=== PATIENT | female | born 1940 | race Caucasian/White ===

== ENCOUNTER → 2016-05-05 | Outpatient (CLI) | payer MEDICARE, OTHER | END | disposition home or self-care (01) | LOC: PCVCCLINIC 10:02 | PROVIDERS: ATTEND Internal Medicine Cardiovascular Disease | DX: E78.5 Hyperlipidemia, unspecified (principal); I10 Essential (primary) hypertension; I25.10 Atherosclerotic heart disease of native coronary artery without angina pectoris; R07.89 Other chest pain | CPT/HCPCS: 80061; 93005; G0463 ==

== ENCOUNTER → 2016-12-31 | Outpatient (CLI) | payer MEDICARE, OTHER ==
--- NOTE | 2016-12-31 11:20 | PCVCIMAG ---
APPROVED REPORT Exam: Stress Echocardiogram Indication: CAD s/p PCI RCA, HTN, HLP Patient Location: Echo lab Stress Nurse: Judi Fischer RN Status: routine Ht: 5 ft 8 in HR: 66 bpm BP: 114/78 mmHg Rhythm: NSR Procedure The patient underwent an Exercise Stress Test using the Reji Protocol. Blood pressure, heart rate, and EKG were monitored. An Echocardiogram was performed by orthotic finish grinding technician in four stages in quad fashion. At peak stress, four selected images were obtained and placed side by side with resting images for comparison. Stress Test Details Stress Test: Exercise stress testing was performed using a modified Reji protocol. HR Resting HR: 66 bpmMax Heart Rate (APMHR): 145 bpm Max HR Achieved: 134 bpmTarget HR (85% APMHR): 123 bpm % of APMHR: 92 Recovery HR: 85 bpm HR response to stress: Normal HR response to stress BP Resting BP: 114/78 mmHg Max BP: 168/80 mmHg Recovery BP: 140/78 mmHg ECG Resting ECG: Sinus Rhythm with Bigeminy PVCs Stress ECG: Sinus Rhythm ST Change: Normal Arrhythmia: Isolated PVCs Recovery ECG: Sinus Rhythm Recovery ST Change: Normal Recovery Arrhythmia: Occasional isolated PVC Clinical Reason for Termination: Maximal effort Stress Symptoms: Dyspnea Exercise duration: 6 min 52 sec Highest Stage Achieved: Stage 3: 3.4 mph at 14% grade. Exercise capacity: 9.6 METs Overall Exercise Capacity for Age: Normal Pre-Stress Echo The resting Echocardiogram showed normal left ventricular contractility with an estimated Ejection Fraction of about >55%. Normal wall motion in all segments on baseline images. Post-Stress Echo The stress Echocardiogram showed normal left ventricular contractility with an estimated Ejection Fraction of about 65%. Normal augmentation of wall motion in all segments on post stress images. Clinical No clinical or ECG evidence for ischemia. Conclusion Clinical Response: Non-ischemic Exercise Capacity: Average Stress ECG Response: Non-ischemic Stress Echo Images: Non-ischemic The left ventricle is normal in size and wall thickness in both the rest and stress images. Other Information Study Quality: Adequate <Conclusion> The left ventricle is normal in size and wall thickness in both the rest and stress images.
== END | disposition home or self-care (01) ==
LOC: PCVCIMAG 09:42
PROVIDERS: ATTEND Internal Medicine Cardiovascular Disease
DX: I25.10 Atherosclerotic heart disease of native coronary artery without angina pectoris (principal); I10 Essential (primary) hypertension; E78.5 Hyperlipidemia, unspecified; Z95.5 Presence of coronary angioplasty implant and graft
CPT/HCPCS: 93325; 93351

== ENCOUNTER → 2017-11-04 | Outpatient (CLI) | payer MEDICARE, OTHER | END | disposition home or self-care (01) | LOC: PCVCCLINIC 10:37 | PROVIDERS: ATTEND Internal Medicine Cardiovascular Disease | DX: I25.10 Atherosclerotic heart disease of native coronary artery without angina pectoris (principal); I10 Essential (primary) hypertension; E78.00 Pure hypercholesterolemia, unspecified; H35.30 Unspecified macular degeneration; Z88.8 Allergy status to other drugs, medicaments and biological substances; Z87.891 Personal history of nicotine dependence; Z79.899 Other long term (current) drug therapy; Z88.0 Allergy status to penicillin | CPT/HCPCS: 80061; 93005; G0463 ==

== ENCOUNTER → 2018-07-19 | Outpatient (CLI) | payer MEDICARE, OTHER ==
--- NOTE | 2018-07-25 15:12 | PCVCIMAG ---
APPROVED REPORT Study performed: 07/19/2018 10:01:27 Exam: Stress Echocardiogram Indication: CAD, Stent, Hypertension, Hyperlipidemia Patient Location: Echo lab Stress Nurse: June Engel RN Status: routine Ht: 5 ft 8 in HR: 75 bpm BP: 130/80 mmHg Rhythm: NSR Medical History Medical History: CAD s/p stent, Hyperlipidemia, HTN Procedure The patient underwent an Exercise Stress Test using the Reji Protocol. Blood pressure, heart rate, and EKG were monitored. An Echocardiogram was performed by patient care technician instructor in four stages in quad fashion. At peak stress, four selected images were obtained and placed side by side with resting images for comparison. Stress Test Details Stress Test: Exercise stress testing was performed using a Reji protocol. HR Resting HR: 75 bpmMax Heart Rate (APMHR): 143 bpm Max HR Achieved: 139 bpmTarget HR (85% APMHR): 121 bpm % of APMHR: 97 Recovery HR: 83 bpm HR response to stress: Normal HR response to stress BP Resting BP: 130/80 mmHg Max BP: 140/80 mmHg Recovery BP: 130/64 mmHg BP response to stress: Normal blood pressure response to stress. ECG Resting ECG: Sinus Rhythm Stress ECG: Sinus Rhythm Arrhythmia: VPC's Recovery ECG: Sinus Rhythm Clinical Reason for Termination: Maximal effort Exercise duration: 6 min sec Highest Stage Achieved: Stage 2: 2.5 mph at 12% grade. Exercise capacity: 7.00 METs Overall Exercise Capacity for Age: Normal Pre-Stress Echo The resting Echocardiogram showed normal left ventricular contractility with an estimated Ejection Fraction of about 55-60%. Normal wall motion in all segments on baseline images. Post-Stress Echo The stress Echocardiogram showed normal left ventricular contractility with an estimated Ejection Fraction of about 60-65%. Normal augmentation of wall motion in all segments on post stress images. Clinical No clinical or ECG evidence for ischemia. Conclusion Clinical Response: Non-ischemic Exercise Capacity: Average Stress ECG Response: Non-ischemic Stress Echo Images: Non-ischemic The left ventricle is normal in size and wall thickness in both the rest and stress images. Other Information Study Quality: Adequate <Conclusion> The left ventricle is normal in size and wall thickness in both the rest and stress images.
== END | disposition home or self-care (01) ==
LOC: PCVCIMAG 09:50
PROVIDERS: ATTEND Internal Medicine Cardiovascular Disease
DX: I25.10 Atherosclerotic heart disease of native coronary artery without angina pectoris (principal); I10 Essential (primary) hypertension; E78.5 Hyperlipidemia, unspecified; Z95.5 Presence of coronary angioplasty implant and graft
CPT/HCPCS: 93325; 93351